=== PATIENT | female | born 1985 | race Caucasian/White ===

== ENCOUNTER 2021-02-01 15:03 | Inpatient (IN) | payer OTHER, MEDICAID ==
[~2021-02-01] VITALS: Ht 152.4 cm; Wt 90.7 kg
[2021-02-01 15:07] VITALS: BP 125/65
[2021-02-01 15:24] LABS: ABSOLUTE EOSINOPHILS 0.1 thou/uL (0.0-0.7); ABSOLUTE LYMPHOCYTES 1.6 thou/uL (0.8-5.3); ABSOLUTE MONOCYTES 0.7 thou/uL (0.0-1.2); ABSOLUTE NEUTROPHILS 3.6 thou/uL (1.6-8.1); BASOPHILS 0.6 %; EOSINOPHILS 1.7 %; HEMATOCRIT 41.2 % (37.0-47.0); LYMPHOCYTES 27.2 %; MCH 28.4 pg (26.0-34.0); MCV 83.3 fL (80.0-100.0); MONOCYTES 11.3 %; NUCLEATED RBCS 0 /100WBC; PLATELET COUNT* 242 thou/uL (150-400); POLYS 59.2 %; RBC 4.94 mil/uL (4.20-5.00); RDW-CV 13.4 % (10.5-14.5)
[2021-02-01 15:33] LABS: CALCIUM 9.1 mg/dL (8.5-10.1); CREATININE 0.9 mg/dL (0.6-1.3); POTASSIUM 3.6 mmol/L (3.5-5.1)
[2021-02-01 15:39] LABS: ALBUMIN 3.8 g/dL (3.4-5.0); TOTAL BILIRUBIN 0.5 mg/dL (<0.1-1.0); TOTAL PROTEIN 7.8 g/dL (6.4-8.2)
[2021-02-01 21:30] VITALS: BP 100/49
[2021-02-02] VITALS (7 sets, daily range): BP systolic 96–115; BP diastolic 49–67
[2021-02-02 04:46] LABS: URINE BILIRUBIN NEGATIVE (Negative); URINE BLOOD NEGATIVE (Negative); URINE CLARITY CLEAR; URINE COLOR YELLOW; URINE GLUCOSE-RANDOM NEGATIVE (Negative); URINE KETONES TRACE (Negative); URINE LEUKOCYTES-REFLEX NEGATIVE (Negative); URINE NITRITE-REFLEX NEGATIVE (Negative); URINE PROTEIN NEGATIVE (Negative); URINE SPECIFIC GRAVITY >= 1.030 (1.005-1.030)
[2021-02-02 04:54] LABS: AMP/METHAMP Negative (Negative); BARBITURATES Negative (Negative); BENZODIAZEPINES Negative (Negative); COCAINE Negative (Negative); METHADONE Negative (Negative); OPIATES POSITIVE (Negative); PCP Negative (Negative); THC Negative (Negative)
--- NOTE | 2021-02-02 09:49 | EKG ---
[place] [address] ELECTROCARDIOGRAM REPORT Name: ELIZABETH WARD Room: [place] [address] ADM IN [facility]#: [id number] Admission: 02/01/21 Attend Phys: Thomas Simon, Discharge: Date of : 85 Date of Service: 02/01/21 1843 Report #: [id number] THIS REPORT FOR: //name// [facility] ED Test Date: 2021-02-01 Test Time: 18:43:11 Pat Name: ELIZABETH WARD Department: Room: [place] [address] Gender: F Certified Fraud Examiner: : 1985 Requested By: Desiree Fish Order Number: [id number] MD: Nacho Davis Measurements Intervals Grant Rate: 81 P: -13 TN: 133 QRS: 14 QRSD: 113 T: 4 QT: 384 QTc: 446 Interpretive Statements Sinus rhythm Borderline intraventricular conduction delay Low voltage, precordial leads Baseline wander in lead(s) V2 No previous ECG available for comparison Electronically Signed On 02-02-2021 9:49:41 TECHNICAL BUSINESS ANALYST by Nacho Davis [email or web address] <ELECTRONICALLY SIGNED> By: Nacho Davis MD, [facility] 02/02/21 0949 [id number] 184 Nacho Davis MD, [facility] /EPI
[2021-02-03 02:16] VITALS: BP 110/63
[2021-02-03 04:44] LABS: HEMATOCRIT 31.5 % (37.0-47.0); MCH 28.9 pg (26.0-34.0); MCHC 35.3 g/dL (28.0-37.0); MCV 81.9 fL (80.0-100.0); MPV 8.3 fl. (7.2-11.1); RBC 3.84 mil/uL (4.20-5.00); RDW-CV 13.2 % (10.5-14.5)
[2021-02-03 04:45] LABS: HEMOGLOBIN 11.1 gm/dL (12.0-15.0)
[2021-02-03 05:03] LABS: ALBUMIN 2.9 g/dL (3.4-5.0); CALCIUM 7.6 mg/dL (8.5-10.1); CREATININE 0.8 mg/dL (0.6-1.3); MAGNESIUM 1.9 mg/dL (1.8-2.4); POTASSIUM 3.6 mmol/L (3.5-5.1); TOTAL BILIRUBIN 0.3 mg/dL (<0.1-1.0); TOTAL PROTEIN 6.2 g/dL (6.4-8.2)
[2021-02-03 06:22] VITALS: BP 106/57
[2021-02-03] MEDS ORDERED: ASPIRIN EC325 M1 PO (10:05)
[2021-02-03] MEDS ORDERED: NORCO5 PO (10:06)
[2021-02-03 17:31] VITALS: BP 142/88
[2021-02-03 20:00] VITALS: BP 108/61
[2021-02-04] VITALS: BP 95/57
[2021-02-04 09:00] VITALS: BP 117/65
[2021-02-04 12:13] VITALS: BP 112/61
[2021-02-04 17:46] VITALS: BP 117/76
[2021-02-04 20:00] VITALS: BP 96/54
[2021-02-05] VITALS: BP 99/57
[2021-02-05 10:45] VITALS: BP 103/57
[2021-02-05 13:48] VITALS: BP 113/73
[2021-02-05 19:06] VITALS: BP 123/73
[2021-02-05 20:00] VITALS: BP 102/55
[2021-02-06 09:26] VITALS: BP 97/52
[2021-02-06 16:00] VITALS: BP 105/64
[2021-02-06 20:24] VITALS: BP 102/60
[2021-02-07 02:32] VITALS: BP 111/62
[2021-02-07 08:00] VITALS: BP 117/64
[2021-02-07 12:47] VITALS: BP 113/57
[2021-02-07 13:24] LABS: ABSOLUTE LYMPHOCYTES 0.8 thou/uL (0.8-5.3); ABSOLUTE MONOCYTES 0.2 thou/uL (0.0-1.2); ABSOLUTE NEUTROPHILS 1.5 thou/uL (1.6-8.1); BASOPHILS 0.2 %; EOSINOPHILS 0.1 %; HEMATOCRIT 30.8 % (37.0-47.0); HEMOGLOBIN 10.4 gm/dL (12.0-15.0); LYMPHOCYTES 33.6 %; MCH 28.3 pg (26.0-34.0); MCHC 33.8 g/dL (28.0-37.0); MCV 83.6 fL (80.0-100.0); MONOCYTES 7.5 %; MPV 8.2 fl. (7.2-11.1); NUCLEATED RBCS 0 /100WBC; PLATELET COUNT* 167 thou/uL (150-400); POLYS 58.6 %; RBC 3.68 mil/uL (4.20-5.00); RDW-CV 13.4 % (10.5-14.5); WBC 2.5 thou/uL (4.0-11.0)
[2021-02-07 13:36] LABS: ALBUMIN 2.6 g/dL (3.4-5.0); CREATININE 0.9 mg/dL (0.6-1.3); POTASSIUM 3.2 mmol/L (3.5-5.1); TOTAL BILIRUBIN 0.4 mg/dL (<0.1-1.0); TOTAL PROTEIN 6.5 g/dL (6.4-8.2)
[2021-02-07 21:00] VITALS: BP 101/58
[2021-02-07 22:53] LABS: URINE BLOOD 3+ (Negative); URINE CLARITY CLEAR; URINE COLOR DARK YELLOW; URINE GLUCOSE-RANDOM NEGATIVE (Negative); URINE KETONES 1+ (Negative); URINE LEUKOCYTES-REFLEX NEGATIVE (Negative); URINE NITRITE-REFLEX NEGATIVE (Negative); URINE PROTEIN TRACE (Negative)
[2021-02-07 22:59] LABS: URINE BILIRUBIN 1+ (Negative)
[2021-02-07 23:01] LABS: ICTOTEST (BILI CONFIRMATORY) Negative (Negative)
[2021-02-07 23:16] LABS: CASTS None Seen /LPF (None Seen); SQUAMOUS 4-10 Moderate /LPF (0-3); URINE WBC-REFLEX 0-5 Rare /HPF (0-5)
[2021-02-07 23:17] LABS: BACTERIA-REFLEX 1-9 Few /HPF (None Seen); CRYSTALS None Seen /LPF (None Seen); URINE RBC >20 Many /HPF (0-2)
[2021-02-08 01:32] VITALS: BP 97/60
[2021-02-08 07:43] LABS: HEMATOCRIT 28.5 % (37.0-47.0); MCH 28.2 pg (26.0-34.0); MCHC 34.9 g/dL (28.0-37.0); MCV 80.7 fL (80.0-100.0); RBC 3.53 mil/uL (4.20-5.00); RDW-CV 13.7 % (10.5-14.5); WBC 3.2 thou/uL (4.0-11.0)
[2021-02-08 07:55] LABS: CALCIUM 7.9 mg/dL (8.5-10.1); CREATININE 0.9 mg/dL (0.6-1.3); MAGNESIUM 2.2 mg/dL (1.8-2.4); POTASSIUM 3.5 mmol/L (3.5-5.1)
[2021-02-08 08:00] VITALS: BP 108/55
[2021-02-08 12:27] VITALS: BP 144/81
[2021-02-08 20:00] VITALS: BP 100/55
[2021-02-09 08:00] VITALS: BP 92/60
[2021-02-09 16:00] VITALS: BP 120/58
[2021-02-09 22:30] VITALS: BP 107/55
[2021-02-10 07:22] LABS: HEMATOCRIT 27.6 % (37.0-47.0); HEMOGLOBIN 9.4 gm/dL (12.0-15.0); MCH 28.2 pg (26.0-34.0); MCHC 34.2 g/dL (28.0-37.0); MCV 82.4 fL (80.0-100.0); MPV 8.6 fl. (7.2-11.1); RBC 3.35 mil/uL (4.20-5.00); RDW-CV 14.1 % (10.5-14.5); WBC 3.1 thou/uL (4.0-11.0)
[2021-02-10 07:44] LABS: ALBUMIN 2.3 g/dL (3.4-5.0); CALCIUM 7.9 mg/dL (8.5-10.1); CREATININE 0.7 mg/dL (0.6-1.3); MAGNESIUM 2.3 mg/dL (1.8-2.4); POTASSIUM 3.5 mmol/L (3.5-5.1); TOTAL BILIRUBIN 0.6 mg/dL (<0.1-1.0)
[2021-02-10 09:00] VITALS: BP 126/77
[2021-02-10 15:52] VITALS: BP 102/57
[2021-02-10 20:00] VITALS: BP 102/58
[2021-02-11] VITALS: BP 95/55
[2021-02-11 06:34] LABS: HEMATOCRIT 26.9 % (37.0-47.0); HEMOGLOBIN 9.1 gm/dL (12.0-15.0); MCH 28.2 pg (26.0-34.0); MCHC 33.7 g/dL (28.0-37.0); MCV 83.7 fL (80.0-100.0); MPV 8.5 fl. (7.2-11.1); RBC 3.22 mil/uL (4.20-5.00); RDW-CV 14.1 % (10.5-14.5); WBC 3.8 thou/uL (4.0-11.0)
[2021-02-11 07:03] LABS: ALBUMIN 2.2 g/dL (3.4-5.0); CALCIUM 7.7 mg/dL (8.5-10.1); CREATININE 0.7 mg/dL (0.6-1.3); MAGNESIUM 2.3 mg/dL (1.8-2.4); POTASSIUM 3.6 mmol/L (3.5-5.1); TOTAL BILIRUBIN 0.8 mg/dL (<0.1-1.0); TOTAL PROTEIN 6.1 g/dL (6.4-8.2)
[2021-02-11 07:57] VITALS: BP 90/52
[2021-02-11 15:24] VITALS: BP 93/54
[2021-02-11 20:00] VITALS: BP 95/56
[2021-02-12] VITALS: BP 91/51
[2021-02-12 06:52] LABS: BE 2.3 mmol/L (-2 to +3); PCO2 33.9 mmHg (35.0-45.0); pH 7.492 (7.340-7.450)
[2021-02-12 08:30] VITALS: BP 105/54
[2021-02-12 20:00] VITALS: BP 109/62
[2021-02-13] VITALS: BP 92/54
[2021-02-13 07:35] VITALS: BP 98/53
[2021-02-13 08:00] LABS: HEMATOCRIT 28.2 % (37.0-47.0); HEMOGLOBIN 9.4 gm/dL (12.0-15.0); MCH 27.6 pg (26.0-34.0); MCHC 33.5 g/dL (28.0-37.0); MCV 82.6 fL (80.0-100.0); MPV 8.4 fl. (7.2-11.1); RBC 3.42 mil/uL (4.20-5.00); RDW-CV 14.1 % (10.5-14.5); WBC 6.4 thou/uL (4.0-11.0)
[2021-02-13 08:09] LABS: CALCIUM 8.4 mg/dL (8.5-10.1); CREATININE 0.8 mg/dL (0.6-1.3)
[2021-02-13] MEDS ORDERED: DOXYCYCLINE 10100 MG PO (11:46)
[2021-02-13 12:03] VITALS: BP 94/56
[2021-02-13 16:00] VITALS: BP 101/54
[2021-02-13 21:14] VITALS: BP 109/56
[2021-02-13 23:54] VITALS: BP 99/60
[2021-02-14 04:00] VITALS: BP 103/69
[2021-02-14 06:32] LABS: HEMATOCRIT 26.9 % (37.0-47.0); MCH 27.9 pg (26.0-34.0); MCHC 33.3 g/dL (28.0-37.0); MCV 83.7 fL (80.0-100.0); MPV 8.1 fl. (7.2-11.1); RBC 3.21 mil/uL (4.20-5.00); RDW-CV 14.1 % (10.5-14.5); WBC 4.6 thou/uL (4.0-11.0)
[2021-02-14 07:14] LABS: CALCIUM 8.2 mg/dL (8.5-10.1); CREATININE 0.6 mg/dL (0.6-1.3); POTASSIUM 3.2 mmol/L (3.5-5.1)
[2021-02-14 08:00] VITALS: BP 104/62
[2021-02-14 12:05] VITALS: BP 103/54
[2021-02-14 16:01] VITALS: BP 110/60
[2021-02-14 20:30] VITALS: BP 103/59
[2021-02-15] VITALS (7 sets, daily range): BP systolic 98–119; BP diastolic 50–75
== END 2021-02-15 17:43 | disposition home or self-care (01) | DRG 853 ==
LOC: M.ERS 15:03 → M.2W 17:25 → M.TBA-ER 17:25 → M.2W 02-02 14:00
PROVIDERS: Family Medicine; Internal Medicine; Nurse Practitioner Family; ADMIT Internal Medicine; ATTEND Internal Medicine
PROC: 2W3QX1Z Immobilization of Right Lower Leg using Splint (ICD-10-PCS; principal; 2021-02-01)
PROC: 0QSG34Z Reposition Right Tibia with Internal Fixation Device, Percutaneous Approach (ICD-10-PCS; 2021-02-02)
PROC: 02HV33Z Insertion of Infusion Device into Superior Vena Cava, Percutaneous Approach (ICD-10-PCS; 2021-02-09)
PROC: 5A0935A Assistance with Respiratory Ventilation, Less than 24 Consecutive Hours, High Flow/Velocity Cannula (ICD-10-PCS; 2021-02-12)
PROC: 5A0935A Assistance with Respiratory Ventilation, Less than 24 Consecutive Hours, High Flow/Velocity Cannula (ICD-10-PCS; 2021-02-13)
PROC: 5A0935A Assistance with Respiratory Ventilation, Less than 24 Consecutive Hours, High Flow/Velocity Cannula (ICD-10-PCS; 2021-02-14)
PROC: 5A0935A Assistance with Respiratory Ventilation, Less than 24 Consecutive Hours, High Flow/Velocity Cannula (ICD-10-PCS; 2021-02-15)
DX: A41.9 Sepsis, unspecified organism (principal); U07.1 COVID-19; J18.9 Pneumonia, unspecified organism; G93.41 Metabolic encephalopathy; E87.1 Hypo-osmolality and hyponatremia; S82.421A Displaced transverse fracture of shaft of right fibula, initial encounter for closed fracture; F17.210 Nicotine dependence, cigarettes, uncomplicated; S82.51XA Displaced fracture of medial malleolus of right tibia, initial encounter for closed fracture; W18.39XA Other fall on same level, initial encounter; E11.65 Type 2 diabetes mellitus with hyperglycemia; Z20.822 Contact with and (suspected) exposure to COVID-19; K59.09 Other constipation; B37.9 Candidiasis, unspecified; Z86.73 Personal history of transient ischemic attack (TIA), and cerebral infarction without residual deficits; Y93.89 Activity, other specified; Z88.1 Allergy status to other antibiotic agents; Y92.098 Other place in other non-institutional residence as the place of occurrence of the external cause; Y99.8 Other external cause status